=== PATIENT | male | born 1975 | race African-American/Black ===

== ENCOUNTER 2019-02-16 04:10 | Emergency (ER) | payer OTHER ==
[~2019-02-16] VITALS: Ht 182.9 cm; Wt 68.0 kg
[~2019-02-16 04:10] MED LIST: NOHOMEMEDICATIONS
[2019-02-16 04:12] VITALS: BP 130/89
[2019-02-16] MEDS ORDERED: IBUPROFEN 600600 M1 PO (04:35)
== END 2019-02-16 05:13 | disposition home or self-care (01) ==
LOC: ER 04:10
DX: S83.8X1A Sprain of other specified parts of right knee, initial encounter (principal); F17.210 Nicotine dependence, cigarettes, uncomplicated; F32.9 Major depressive disorder, single episode, unspecified; Z88.8 Allergy status to other drugs, medicaments and biological substances; X50.1XXA Overexertion from prolonged static or awkward postures, initial encounter; Y92.89 Other specified places as the place of occurrence of the external cause; Y93.02 Activity, running; Y99.8 Other external cause status